=== PATIENT | female | born 1960 | race Caucasian/White ===

== ENCOUNTER 2019-05-03 16:48 | Emergency (ER) | payer BC ==
[2019-05-03 17:24] LABS: Absolute Lymphocytes (CBC) 1.9 K/uL (0.7-4.9); Hematocrit 39.8 % (36.0-45.0); Lymphocytes % 19.6 % (15.3-44.8); MPV 6.9 fL (7.6-11.3)
[2019-05-03 17:26] LABS: Protime INR 1.07
[2019-05-03 17:53] LABS: ALT/SGPT 30 U/L (12-78); AST/SGOT 16 U/L (15-37); Albumin 3.8 g/dL (3.4-5.0); Alkaline Phosphatase 68 U/L (45-117); BUN Blood Urea Nitrogen 16 mg/dL (7-18); Bicarbonate 26 mmol/L (21-32); Bilirubin Direct 0.1 mg/dL (0-0.2); Bilirubin Total 0.5 mg/dL (0.2-1.0); Glucose Level 116 mg/dL (74-106); Magnesium 2.4 mg/dL (1.8-2.4); NT PRO-BNP 28 pg/mL (<125); Potassium 3.6 mmol/L (3.5-5.1); Protein, Total 7.3 g/dL (6.4-8.2); Sodium Level 140 mmol/L (136-145); Troponin (Emerg Dept Use Only) < 0.02 ng/mL (0.0-0.045)
--- NOTE | 2019-05-03 18:55 | ER ---
Nurse's Notes [facility] Name: Gilda Jamison Age: 58 yrs Sex: Female : 1960 Arrival Date: 05/03/2019 Time: 16:56 Bed 3 Private MD: Diagnosis: Weakness;Syncope and collapse-near;Vomiting Presentation: 05/02 16:48 Chief complaint: EMS states: pt was driving and all of a sudden started feeling sv nauseous/sweaty/lightheaded, went to gag and she urinated on herself but was awake the entire time. 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 On EMS arrival pt felt better and they were getting vitals and pt became nauseous again and vomited once. BP 116/81 HR-82 SR BS-132 98% RA. Coronavirus screen: The patient has NOT traveled to a country currently being monitored by the [facility] within the last 14 days. Proceed with normal triage procedures. The patient has NOT had contact with any known and/or suspected case of coronavirus. Proceed with normal triage procedures. Ebola Screen: Patient negative for fever greater than or equal to 101.5 degrees Fahrenheit, and additional compatible Ebola Virus Disease symptoms Patient denies exposure to infectious person. Patient denies travel to an Ebola-affected area in the 21 days before illness onset. No symptoms or risks identified at this time. Initial Sepsis Screen: Does the patient meet any 2 criteria? No. Patient's initial sepsis screen is negative. Does the patient have a suspected source of infection? No. Patient's initial sepsis screen is negative. Risk Assessment: Do you want to hurt yourself or someone else? Patient reports no desire to harm self or others. 16:48 Method Of Arrival: EMS: [facility] sv 16:48 Acuity: EHSAN 3 sv 17:04 Onset of symptoms was May 03, 2019. sv Triage Assessment: 17:05 General: Appears in no apparent distress. comfortable, well groomed, well developed, sv Behavior is calm, cooperative, appropriate for age. Pain: Denies pain. Neuro: Level of Consciousness is awake, alert, obeys commands, Oriented to person, place, time, situation, Moves all extremities. Full function Speech is normal, Facial symmetry appears normal. Cardiovascular: Patient's skin is warm and dry. Respiratory: Airway is patent Respiratory effort is even, unlabored, Respiratory pattern is regular, symmetrical. GI: Reports nausea. Derm: Skin is intact, Skin is pink, warm \\T\\ dry. Historical: - Allergies: 17:03 Codeine; sv 17:03 hydrocodone; sv 17:03 "pretty much all pain meds"; sv - Home Meds: 17:03 Effexor Oral [Active]; unknown HTN med [Active]; sv - PMHx: 17:03 Hypertension; sv - Immunization history:: Adult Immunizations up to date. - Social history:: Smoking status: Patient denies any tobacco usage or history of. Screenin:04 Abuse screen: Denies threats or abuse. Denies injuries from another. Nutritional sv screening: No deficits noted. Tuberculosis screening: No symptoms or risk factors identified. Fall Risk None identified. Assessment: 17:23 Reassessment: Patient appears in no apparent distress at this time. No changes from sv previously documented assessment. Patient and/or family updated on plan of care and expected duration. Pain level reassessed. Patient is alert, oriented x 3, equal unlabored respirations, skin warm/dry/pink. 18:42 Reassessment: Patient appears in no apparent distress at this time. No changes from sv previously documented assessment. Patient and/or family updated on plan of care and expected duration. Pain level reassessed. Patient is alert, oriented x 3, equal unlabored respirations, skin warm/dry/pink. Vital Signs: 16:48 BP 104 / 63; Pulse 75; Resp 16; Temp 97.5; Pulse Ox 100% ; Pain 0/10; sv 18:42 BP 107 / 68; Pulse 72; Resp 16; Pulse Ox 98% ; sv ED Course: 16:48 Maintain EMS IV. Dressing intact. Good blood return noted. Site clean \\T\\ dry. Gauge \\T\\ sv site: 20G R AC. 16:56 Patient arrived in ED. sv 16:57 Silva Figueroa RN is Primary Nurse. sv 17:02 Triage completed. sv 17:03 Arm band placed on Patient placed in an exam room, on a stretcher, on pulse oximetry. sv 17:04 Awaiting ED provider evaluation. sv 17:04 Patient has correct armband on for positive identification. Bed in low position. Call sv light in reach. Side rails up X2. Adult w/ patient. Pulse ox on. NIBP on. Door closed. Head of bed elevated. 17:13 Donnell Babb MD is Attending Physician. kdr 17:22 ED physician to see patient. sv 17:22 EKG done, by ED staff, reviewed by Donnell Babb MD. sv 17:46 LAB Add On Sent. sv 17:50 Warm blanket given. sv 19:21 No provider procedures requiring assistance completed. IV discontinued, intact, jl7 bleeding controlled, No redness/swelling at site. Pressure dressing applied. Administered Medications: No medications were administered Point of Care Testing: Blood Glucose: 17:02 Blood Glucose: 88 mg/dL; sv Ranges: Outcome: 18:54 Discharge ordered by . kdr 19:21 Discharged to home ambulatory. jl7 19:21 Condition: stable 19:21 Discharge instructions given to patient, family, Instructed on discharge instructions, follow up and referral plans. medication usage, Demonstrated understanding of instructions, follow-up care, medications, Prescriptions given X 1. 19:22 Patient left the ED. jl7 Signatures: Silva Figueroa, RN RN Donnell Babb MD MD kdr Leal, Jahala RN RN jl7
--- NOTE | 2019-05-03 18:55 | EDPHYS ---
Physician Documentation [facility] Name: Gilda Jamison Age: 58 yrs Sex: Female : 1960 Arrival Date: 05/03/2019 Time: 16:56 Bed 3 Private MD: ED Physician Donnell Babb HPI: 05/02 17:33 This 58 yrs old Female presents to ER via EMS with complaints of kdr Nausea/Vomiting. 17:33 The patient presents to the emergency department with nausea, vomiting, that is kdr intermittent. Onset: The symptoms/episode began/occurred acutely, suddenly, just prior to arrival. Possible causes: unknown. The symptoms are aggravated by nothing. The symptoms are alleviated by nothing. Severity of symptoms: At their worst the symptoms were moderate severe incapacitating just prior to arrival, in the emergency department the symptoms have resolved. The patient has experienced a previous episode, Few weeks ago (14 days). The patient has not recently seen a physician. 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 She also had one glass of tea (\\R\\32 oz.) Over the last two weeks, the patient had radically changed her diet and had not eaten much today. The had been off all day and then became more light headed and started to gag/vomit. At time, she had loss of bladder control. Historical: - Allergies: 17:03 Codeine; sv 17:03 hydrocodone; sv 17:03 "pretty much all pain meds"; sv - Home Meds: 17:03 Effexor Oral [Active]; unknown HTN med [Active]; sv - PMHx: 17:03 Hypertension; sv - Immunization history:: Adult Immunizations up to date. - Social history:: Smoking status: Patient denies any tobacco usage or history of. ROS: 17:33 Constitutional: Negative for fever, chills, and weight loss, Eyes: Negative for injury, kdr pain, redness, and discharge, ENT: Negative for injury, pain, and discharge, Neck: Negative for injury, pain, and swelling, Cardiovascular: Negative for chest pain, palpitations, and edema, Respiratory: Negative for shortness of breath, cough, wheezing, and pleuritic chest pain, Back: Negative for injury and pain, : Negative for injury, bleeding, discharge, and swelling, MS/Extremity: Negative for injury and deformity, Skin: Negative for injury, rash, and discoloration, Psych: Negative for depression, anxiety, suicide ideation, homicidal ideation, and hallucinations, Allergy/Immunology: Negative for hives, rash, and allergies, Endocrine: Negative for neck swelling, polydipsia, polyuria, polyphagia, and marked weight changes, Hematologic/Lymphatic: Negative for swollen nodes, abnormal bleeding, and unusual bruising. 17:33 Abdomen/GI: Positive for nausea, vomiting. Exam: 17:33 Constitutional: This is a well developed, well nourished patient who is awake, alert, kdr and in no acute distress. Head/Face: Normocephalic, atraumatic. Eyes: Pupils equal round and reactive to light, extra-ocular motions intact. Lids and lashes normal. Conjunctiva and sclera are non-icteric and not injected. Cornea within normal limits. Periorbital areas with no swelling, redness, or edema. Neck: Trachea midline, no thyromegaly or masses palpated, and no cervical lymphadenopathy. Supple, full range of motion without nuchal rigidity, or vertebral point tenderness. No Meningismus. Chest/axilla: Normal chest wall appearance and motion. Nontender with no deformity. No lesions are appreciated. Cardiovascular: Regular rate and rhythm with a normal S1 and S2. No gallops, murmurs, or rubs. Normal PMI, no JVD. No pulse deficits. Respiratory: Lungs have equal breath sounds bilaterally, clear to auscultation and percussion. No rales, rhonchi or wheezes noted. No increased work of breathing, no retractions or nasal flaring. Abdomen/GI: Soft, non-tender, with normal bowel sounds. No distension or tympany. No guarding or rebound. No evidence of tenderness throughout. Back: No spinal tenderness. No costovertebral tenderness. Full range of motion. Skin: Warm, dry with normal turgor. Normal color with no rashes, no lesions, and no evidence of cellulitis. MS/ Extremity: Pulses equal, no cyanosis. Neurovascular intact. Full, normal range of motion. Neuro: Awake and alert, GCS 15, oriented to person, place, time, and situation. Cranial nerves II-XII grossly intact. Motor strength 5/5 in all extremities. Sensory grossly intact. Cerebellar exam normal. Normal gait. Psych: Awake, alert, with orientation to person, place and time. Behavior, mood, and affect are within normal limits. Vital Signs: 16:48 BP 104 / 63; Pulse 75; Resp 16; Temp 97.5; Pulse Ox 100% ; Pain 0/10; sv 18:42 BP 107 / 68; Pulse 72; Resp 16; Pulse Ox 98% ; sv MDM: 17:33 Data reviewed: vital signs, nurses notes, lab test result(s), radiologic studies. kdr Counseling: I had a detailed discussion with the patient and/or guardian regarding: the historical points, exam findings, and any diagnostic results supporting the discharge/admit diagnosis, lab results, radiology results. 18:54 Patient medically screened. kdr 05/02 17:07 Order name: Basic Metabolic Panel; Complete Time: 18:19 [facility] 05/02 17:07 Order name: CBC with Diff; Complete Time: 17:29 [facility] 05/02 17:07 Order name: LFT's; Complete Time: 18:20 [facility] 05/02 17:07 Order name: Magnesium; Complete Time: 18:20 [facility] 05/02 17:07 Order name: NT PRO-BNP; Complete Time: 18:20 [facility] 05/02 17:07 Order name: PT-INR; Complete Time: 17:29 [facility] 05/02 17:07 Order name: Troponin (emerg Dept Use Only); Complete Time: 18:20 [facility] 05/02 17:07 Order name: EKG; Complete Time: 17:08 [facility] 05/02 17:07 Order name: Cardiac monitoring; Complete Time: 17:23 [facility] 05/02 17:07 Order name: EKG - Nurse/Tech; Complete Time: 17:23 [facility] 05/02 17:07 Order name: IV Saline Lock; Complete Time: 17:07 [facility] 05/02 17:15 Order name: Glucose, Ancillary Testing; Complete Time: 17:29 [facility] 05/02 17:31 Order name: LAB Add On sv 05/02 17:32 Order name: Thyroid Stimulating Hormone; Complete Time: 18:20 [facility] 05/02 17:07 Order name: Labs collected and sent; Complete Time: 17:11 [facility] 05/02 17:07 Order name: O2 Per Protocol; Complete Time: 17:07 jl7 05/02 17:07 Order name: O2 Sat Monitoring; Complete Time: 17:7 Administered Medications: No medications were administered Point of Care Testing: Blood Glucose: 17:02 Blood Glucose: 88 mg/dL; sv Ranges: Critical Glucose Levels:Adult <50 mg/dl or >400 mg/dl <40 mg/dl or >180 mg/dl Disposition: 05/03/19 18:54 Discharged to Home. Impression: Weakness, Syncope and collapse - near, Vomiting. - Condition is Stable. - Discharge Instructions: Nausea and Vomiting, Adult, [id number], Weakness, [id number]. - Prescriptions for Zofran 4 mg Oral Tablet - take 1 tablet by ORAL route every 4-6 hours As needed; 12 tablet. - Medication Reconciliation Form, Thank You Letter form. - Follow up: Private Physician; When: 2 - 3 days; Reason: If symptoms return, Further diagnostic work-up, Recheck today's complaints, Continuance of care, Re-evaluation by your physician. - Problem is new. - Symptoms are resolved. Signatures: Dispatcher [employer] EDSilva Lock RN RN sv Donnell Babb MD MD kdr Bal Byrd RN RN jl7 Corrections: (The following items were deleted from the chart) 19:22 18:54 05/03/2019 18:54 Discharged to Home. Impression: Weakness; Syncope and collapse - jl7 near; Vomiting. Condition is Stable. Forms are Medication Reconciliation Form, Thank You Letter, Antibiotic Education, Prescription Opioid Use. Follow up: Private Physician; When: 2 - 3 days; Reason: If symptoms return, Further diagnostic work-up, Recheck today's complaints, Continuance of care, Re-evaluation by your physician. Problem is new. Symptoms are resolved. kdr
[2019-05-03 19:28] VITALS: TEMP 97.5
[2019-05-03 19:29] VITALS: BP 107/68; O2SAT 98
--- NOTE | 2019-05-06 06:58 | EKG ---
Test Date: 2019-05-03 Test Time: 17:19:44 [employer] Technician: JYOTSNA MEASUREMENT RESULTS: Intervals: Rate: 74 OH: 166 QRSD: 96 QT: 402 QTc: 446 [place]: P: 65 OH: 166 QRS: 25 T: 20 INTERPRETIVE STATEMENTS: Normal sinus rhythm Normal ECG No previous ECG available for comparison Electronically Signed On 05-06-19 06:55:21 CDT by Jer Joy
== END 2019-05-03 19:22 | disposition home or self-care (01) ==
LOC: ER 16:48
DX: R53.1 Weakness (principal); R55 Syncope and collapse; I10 Essential (primary) hypertension; Z88.5 Allergy status to narcotic agent; Z88.6 Allergy status to analgesic agent
CPT/HCPCS: 36415; 80048; 80076; 82947; 83735; 83880; 84443; 84484; 85025; 85610; 93005; 99284